=== PATIENT | female | born 1950 | race Caucasian/White ===

== ENCOUNTER → 2016-10-19 | Day surgery (SDC) | payer MEDICARE ==
[2016-10-19 08:34] LABS: HCT 42.1 % (37.0-47.0); HGB 13.9 g/dl (12.5-16.0); MCH 25.9 pg (25.0-31.0); MCV 78.4 fL (78.0-100.0); RBC 5.37 M/uL (4.20-5.40); RDW 16.5 % (11.5-14.0); WBC 5.8 K/uL (4.0-10.5)
[2016-10-19 08:55] LABS: ALBUMIN 4.3 g/dL (3.4-4.8); BILIRUBIN - TOTAL 0.6 mg/dL (0.1-1.0); CREATININE 1.2 mg/dL (0.5-1.0); POTASSIUM 4.6 mmol/L (3.5-5.1); TOTAL PROTEIN 7.3 g/dL (6.4-8.3)
== END | disposition home or self-care (01) ==
LOC: FAS 07:42
PROVIDERS: Surgery
DX: Z12.11 Encounter for screening for malignant neoplasm of colon (principal); E78.5 Hyperlipidemia, unspecified; E03.9 Hypothyroidism, unspecified; I10 Essential (primary) hypertension; Z79.899 Other long term (current) drug therapy; Z98.890 Other specified postprocedural states; Z85.850 Personal history of malignant neoplasm of thyroid
CPT/HCPCS: 36415; 80053; J2704